=== PATIENT | female | born 2005 | race Caucasian/White ===

== ENCOUNTER 2023-06-19 19:21 | Emergency (ER) | payer MEDICAID ==
[~2023-06-19] VITALS: Ht 170.2 cm; Wt 57.0 kg
[~2023-06-19 19:21] MED LIST: AMOXICILLI400 MG/5 M PO; NO CURRENT MEDS; RONDEC DM SYRUP5 ML OR
[2023-06-19 20:15] VITALS: BP 139/69
[2023-06-19 20:30] VITALS: BP 131/76
[2023-06-19 20:49] LABS: URINE BILIRUBIN - DIPSTICK Negative (NEGATIVE); URINE BLOOD DIPSTICK Negative (NEGATIVE); URINE CLARITY Slightly Cloudy; URINE GLUCOSE - DIPSTICK Negative (NEGATIVE); URINE KETONE Negative (NEGATIVE); URINE LEUK ESTERASE Negative (Negative); URINE NITRITE - DIPSTICK Negative (Negative); URINE PH 6.5 (4.5-8.0); URINE PROTEIN - DIPSTICK Negative (NEG-TRACE); URINE SPECIFIC GRAVITY 1.025
[2023-06-19 20:54] LABS: URINE COLOR Yellow
[2023-06-19 21:23] VITALS: BP 131/76
== END 2023-06-19 21:28 | disposition home or self-care (01) ==
LOC: ED 19:21
PROVIDERS: Emergency Medicine
DX: O99.511 Diseases of the respiratory system complicating pregnancy, first trimester (principal); J06.9 Acute upper respiratory infection, unspecified; Z3A.01 Less than 8 weeks gestation of pregnancy; Z20.822 Contact with and (suspected) exposure to COVID-19